=== PATIENT | female | born 1980 | race Caucasian/White ===

== ENCOUNTER 2016-07-29 08:50 | Emergency (ER) | payer OTHER ==
[~2016-07-29 08:50] MED LIST: ASPIRIN EC81 MG PO; COLACE100 MG PO; HYDROCODON-ACE1 EAC6 PO; JANUVIA100 MG PO; LEVAQUIN500 MG PO; METFORMIN HCL1000 MG PO; NICODERM 7MG PAT1 EA TD; OMEPRAZOLE40 MG PO; VENTOLIN HFA8 GM INH; ZESTRIL10 MG PO; ZOCOR40 MG PO
[2016-07-29 09:25] LABS: BASO % 0.3 % (0.1-1.2); EOS # 0.1 10_X3_uL (0.0-0.4); EOS % 1.5 % (0.7-5.8); GRAN # 3.8 10_X3_uL (1.6-6.1); GRAN % 63.4 % (34.0-71.1); HEMATOCRIT 32.4 % (34-45); HEMOGLOBIN 9.9 g/dL (11.2-15.7); LYMPH # 1.6 10_X3_uL (1.2-3.7); LYMPH % 26.4 % (19.3-51.7); MEAN CORPUSCULAR HEMOGLOBIN 22.1 pg (27.0-33.0); MEAN CORPUSCULAR HGB CONC 30.6 g/dL (32.0-36.0); MEAN CORPUSCULAR VOLUME 72.5 fL (79-95); MONO # 0.5 10_X3_uL (0.2-0.9); MONO % 8.4 % (4.7-12.5); PLATELET COUNT 265 x10_3/uL (182-369); RED BLOOD COUNT 4.47 x10_6/uL (3.9-5.2); RED CELL DISTRIBUTION WIDTH 16.7 % (11.7-14.4)
[2016-07-29 09:36] LABS: ALBUMIN 4.1 gm/dL (3.4-5.0); ALKALINE PHOSPHATASE 54 U/L (50-136); ALT/SGPT 24 U/L (3.5-33.9); AMYLASE 28 U/L (15.62-74.58); AST/SGOT 18 U/L (7.04-26.96); BILIRUBIN,TOTAL 0.21 mg/dL (0.0-1.0); BLOOD UREA NITROGEN 11 mg/dL (7-18); CALCIUM 8.4 mg/dL (8.7-10.7); CARBON DIOXIDE 21 mmol/L (21-32); CREATININE < 0.5 mg/dL (0.6-1.3); GLUCOSE,RANDOM 255 mg/dL (70-99); LIPASE 38 U/L (6.75-60.75); POTASSIUM 4.1 mmol/L (3.5-5.1); SODIUM 136 mmol/L (136-145); TOTAL PROTEIN 6.9 gm/dL (6.4-8.2)
== END 2016-07-29 12:45 | disposition home or self-care (01) ==
LOC: ER 08:50
PROVIDERS: Emergency Medicine
DX: R10.11 Right upper quadrant pain (principal); E11.9 Type 2 diabetes mellitus without complications; Z98.51 Tubal ligation status; Z79.891 Long term (current) use of opiate analgesic; Z79.899 Other long term (current) drug therapy; Z79.84 Long term (current) use of oral hypoglycemic drugs
CPT/HCPCS: 36415; 76705; 80053; 82150; 83690; 85025; 99284-25